=== PATIENT | female | born 1940 | race Native Hawaiian/Other Pacific Islander ===

== ENCOUNTER 2016-09-21 10:26 | Outpatient (CLI) | payer OTHER ==
[~2016-09-21 10:26] MED LIST: ASPIR-LOW81 MG OR; BENZ100C8 PO; CARV25TA PO; CLARITIN10 MG PO; CLOP75TA2 PO; FURO20TA67 PO; GLIM4TAB PO; GUAI600T70 PO; LEVAQUIN500 MG OR; MULTAQ400 MG OR
[2016-09-21 11:00] LABS: PLATELET COUNT 200 K/uL (152-353)
[2016-09-21 11:20] LABS: POTASSIUM 4.6 mmol/L (3.6-5.2)
== END 2016-09-21 19:48 | disposition home or self-care (01) ==
LOC: LABW 10:26
PROVIDERS: Internal Medicine Nephrology
DX: I12.9 Hypertensive chronic kidney disease with stage 1 through stage 4 chronic kidney disease, or unspecified chronic kidney disease (principal); D63.1 Anemia in chronic kidney disease; D50.8 Other iron deficiency anemias; E11.22 Type 2 diabetes mellitus with diabetic chronic kidney disease; N25.81 Secondary hyperparathyroidism of renal origin; E55.9 Vitamin D deficiency, unspecified
CPT/HCPCS: 36415; 80048; 81000; 82306; 82570; 82728; 83540; 83550; 83735; 83970; 84100; 84155; 85027; 85044

== ENCOUNTER 2016-11-16 11:07 | Outpatient (CLI) | payer OTHER | END 2016-11-16 19:11 | disposition home or self-care (01) | LOC: MAMMO 11:07 | DX: Z12.31 Encounter for screening mammogram for malignant neoplasm of breast (principal) | CPT/HCPCS: G0202-TC ==

== ENCOUNTER 2016-11-27 11:27 | Outpatient (CLI) | payer OTHER | END 2016-11-27 13:30 | disposition home or self-care (01) | LOC: CT 11:27 | DX: R91.1 Solitary pulmonary nodule (principal) ==

== ENCOUNTER 2017-06-04 09:30 | Outpatient (CLI) | payer OTHER ==
[2017-06-04 10:10] LABS: PLATELET COUNT 198 K/uL (152-353)
[2017-06-04 10:24] LABS: POTASSIUM 4.4 mmol/L (3.6-5.2)
== END 2017-06-04 10:30 | disposition home or self-care (01) ==
LOC: LABW 09:30
PROVIDERS: Internal Medicine Nephrology
DX: I12.9 Hypertensive chronic kidney disease with stage 1 through stage 4 chronic kidney disease, or unspecified chronic kidney disease (principal); N18.3 Chronic kidney disease, stage 3 (moderate); E11.22 Type 2 diabetes mellitus with diabetic chronic kidney disease; E83.42 Hypomagnesemia
CPT/HCPCS: 36415; 80053; 81000; 82570; 83735; 84100; 84155; 85027

== ENCOUNTER 2017-10-25 08:47 | Outpatient (CLI) | payer OTHER ==
[2017-10-25 10:17] LABS: PLATELET COUNT 274 K/uL (152-353)
[2017-10-25 11:20] LABS: POTASSIUM 4.5 mmol/L (3.6-5.2)
== END 2017-10-25 20:21 | disposition home or self-care (01) ==
LOC: LABW 08:47
PROVIDERS: Internal Medicine
DX: N18.3 Chronic kidney disease, stage 3 (moderate) (principal)
CPT/HCPCS: 36415; 80053; 81000; 82043; 82306; 82330; 82570; 82607; 83735; 84100; 84155; 84439; 84443; 84550; 85027

== ENCOUNTER 2018-10-21 10:38 | Outpatient (CLI) | payer OTHER ==
[2018-10-21 11:30] LABS: PLATELET COUNT 180 K/uL (152-353)
[2018-10-21 13:02] LABS: POTASSIUM 4.5 mmol/L (3.6-5.2)
== END 2018-10-21 21:07 | disposition home or self-care (01) ==
LOC: LABW 10:38 → RAD 10:38 → LABW 21:07
PROVIDERS: Internal Medicine
DX: N18.3 Chronic kidney disease, stage 3 (moderate) (principal); R91.1 Solitary pulmonary nodule; Z79.899 Other long term (current) drug therapy
CPT/HCPCS: 36415; 80053; 81000; 82043; 82306; 82570; 83735; 83970; 84100; 84155; 84439; 84443; 85027

== ENCOUNTER 2019-02-24 09:50 | Outpatient (CLI) | payer OTHER ==
[2019-02-24 10:38] LABS: PLATELET COUNT 213 K/uL (152-353)
== END 2019-02-24 23:15 | disposition home or self-care (01) ==
LOC: LABW 09:50
PROVIDERS: Internal Medicine
DX: N18.3 Chronic kidney disease, stage 3 (moderate) (principal)
CPT/HCPCS: 36415; 81000; 82043; 82330; 82570; 83735; 84100; 84155; 85027

== ENCOUNTER 2019-05-29 19:37 | Emergency (ER) | payer OTHER ==
[~2019-05-29] VITALS: Ht 160 cm; Wt 99.8 kg
[2019-05-29 19:55] VITALS: TEMP 97.5
[2019-05-29 21:35] VITALS: BP 148/50
== END 2019-05-29 21:39 | disposition home or self-care (01) ==
LOC: ED 19:37
DX: L76.21 Postprocedural hemorrhage of skin and subcutaneous tissue following a dermatologic procedure (principal)
CPT/HCPCS: 99282

== ENCOUNTER 2019-06-29 09:26 | Outpatient (CLI) | payer OTHER ==
[2019-06-29 10:07] LABS: PLATELET COUNT 208 K/uL (152-353)
[2019-06-29 10:16] LABS: POTASSIUM 4.3 mmol/L (3.6-5.2)
== END 2019-06-29 19:23 | disposition home or self-care (01) ==
LOC: LABW 09:26
PROVIDERS: Internal Medicine
DX: N18.3 Chronic kidney disease, stage 3 (moderate) (principal); E11.9 Type 2 diabetes mellitus without complications
CPT/HCPCS: 36415; 80053; 81000; 82330; 82570; 83036; 83735; 84100; 84155; 85027

== ENCOUNTER 2019-10-01 09:13 | Outpatient (CLI) | payer OTHER | END 2019-10-01 22:44 | disposition home or self-care (01) | LOC: LABW 09:13 | PROVIDERS: Internal Medicine Cardiovascular Disease | DX: I10 Essential (primary) hypertension (principal) | CPT/HCPCS: 36415; 80048 ==

== ENCOUNTER 2020-07-26 15:42 | Outpatient (CLI) | payer OTHER ==
[2020-07-26 16:09] LABS: PLATELET COUNT 152 K/uL (152-353)
[2020-07-26 16:49] LABS: POTASSIUM 3.8 mmol/L (3.6-5.2)
== END 2020-07-26 22:17 | disposition home or self-care (01) ==
LOC: LABW 15:42
PROVIDERS: ATTEND Nurse Practitioner Family
DX: U07.1 COVID-19 (principal); Z79.899 Other long term (current) drug therapy
CPT/HCPCS: 36415; 36600; 80053; 82728; 82805; 85027; 85379; 86140

== ENCOUNTER 2022-11-28 08:40 | Outpatient (CLI) | payer OTHER | END 2022-11-28 18:57 | disposition home or self-care (01) | LOC: US 08:40 | PROVIDERS: ATTEND Internal Medicine | DX: R93.5 Abnormal findings on diagnostic imaging of other abdominal regions, including retroperitoneum (principal); N18.4 Chronic kidney disease, stage 4 (severe); K76.89 Other specified diseases of liver; E11.22 Type 2 diabetes mellitus with diabetic chronic kidney disease ==